=== PATIENT | male | born 1970 | race Caucasian/White ===

== ENCOUNTER 2022-09-25 11:57 | Emergency (ER) | payer OTHER ==
[2022-09-25 12:03] VITALS: BP 147/95
[2022-09-25] MEDS ORDERED: HYDROCODONE/ACETAMINOPHEN 5/325 MG TAB PO ONE (13:00)
== END 2022-09-25 15:00 | disposition home or self-care (01) ==
LOC: EDH 11:57
DX: S52.201A Unspecified fracture of shaft of right ulna, initial encounter for closed fracture (principal); S52.501A Unspecified fracture of the lower end of right radius, initial encounter for closed fracture; Z88.8 Allergy status to other drugs, medicaments and biological substances; W01.0XXA Fall on same level from slipping, tripping and stumbling without subsequent striking against object, initial encounter; Y93.89 Activity, other specified; Y92.89 Other specified places as the place of occurrence of the external cause; Y99.8 Other external cause status
CPT/HCPCS: 29125; 73090; 73100

== ENCOUNTER 2022-11-18 00:54 | Emergency (ER) | payer OTHER ==
[~2022-11-18] VITALS: Ht 170.2 cm; Wt 70.3 kg
[2022-11-18] MEDS ORDERED: ACET-66 PO (03:18)
[2022-11-18 03:37] VITALS: BP 108/52
== END 2022-11-18 03:40 | disposition home or self-care (01) ==
LOC: EDH 00:54
DX: S52.511A Displaced fracture of right radial styloid process, initial encounter for closed fracture (principal); F41.9 Anxiety disorder, unspecified; F31.9 Bipolar disorder, unspecified; J44.9 Chronic obstructive pulmonary disease, unspecified; F20.9 Schizophrenia, unspecified; Z88.6 Allergy status to analgesic agent; W18.30XA Fall on same level, unspecified, initial encounter; Y93.89 Activity, other specified; Y92.89 Other specified places as the place of occurrence of the external cause; Y99.8 Other external cause status
CPT/HCPCS: 29125; 73110; 73130